=== PATIENT | male | born 1980 | race Caucasian/White ===

== ENCOUNTER 2016-12-20 08:48 | Day surgery (SDC) | payer BC ==
[2016-12-20] MEDS ORDERED: LIDOCAINE 2% MDV (20MG/ML) 20ML VIAL IV ONE (14:00)
[2016-12-20] MEDS ORDERED: MIDAZOLAM HCL 2MG/2ML VIAL IV ONE (14:00)
[2016-12-20] MEDS ORDERED: PROPOFOL 10 MG/ML VIAL IV ONE (14:00)
--- NOTE | 2016-12-21 17:09 | Operative Note ---
DATE OF SURGERY: 12/20/2016 OPERATION: COLONOSCOPY with photo and random biopsy. PREOPERATIVE DIAGNOSIS: Questionable history of ulcerative colitis, rule out inflammatory bowel disease. POSTOPERATIVE DIAGNOSIS: Normal-appearing colon and terminal ileum. PROCEDURE: After informed consent was obtained from the patient, he was placed in the left lateral decubitus position in the endoscopy suite, sedated and monitored by the department of anesthesia. Digital rectal exam was unremarkable. A well-lubricated [id number] colonoscope was inserted into the rectum and advanced to the cecum. Preparation quality was good. The cecum, terminal ileum, ascending colon, transverse colon, descending colon, sigmoid colon, and rectum were unremarkable. No polyps, mass lesions, or inflammation was readily obvious. Random biopsies were obtained from the sigmoid colon and ascending colon. Forward and J-turn views of the rectum were unremarkable. The endoscope was straightened, the rectal ampulla deflated, and the endoscope was removed. RECOMMENDATIONS: I would suggest the patient resume his medications and diet. At this point I see no obvious endoscopic evidence to confirm the presence of active inflammatory bowel disease. At this point, unless there is any other striking symptomatic change, I would continue to observe him symptomatically and clinically. As always, thank you for allowing me to participate in the healthcare of your patients. CC: YONY Bearden
== END 2016-12-20 11:08 | disposition home or self-care (01) ==
LOC: HOP 08:48
PROVIDERS: ATTEND Internal Medicine Gastroenterology
DX: Z87.19 Personal history of other diseases of the digestive system (principal); D12.5 Benign neoplasm of sigmoid colon; E78.00 Pure hypercholesterolemia, unspecified